=== PATIENT | male | born 1985 | race Caucasian/White ===

== ENCOUNTER 2017-02-13 23:11 | Emergency (ER) | payer OTHER ==
[~2017-02-13] VITALS: Ht 170.2 cm; Wt 73.0 kg
[2017-02-13 23:20] VITALS: Ht 170.2 cm; Wt 73.0 kg
[2017-02-14] MEDS ORDERED: LIDOCAINE 2%/EPI MPF (SDV) 20 ML VIAL INJ STA (00:58)
[2017-02-14 02:20] VITALS: BP 120/66; PULSE 60; RESP 22; TEMP 98.6
--- NOTE | 2017-02-15 18:57 | ERD ---
ER Documentation Chief Complaint Date/Time DATE: 02/15/17 TIME: 18:53 Chief Complaint left upper eyebrow laceration sustained while playing soccer HPI This is a 32-year-old male presents to the emergency department with a laceration to his left upper eyebrow from getting hit with a soccer ball a couple hours prior to being seen. Patient states that he has had no loss of consciousness, he denies any vomiting, nausea and dizziness. He states pain is minimal. Patient states that his last tetanus was this year. ROS All systems reviewed and are negative except as per history of present illness. Allergies Allergies: Coded Allergies: No Known Allergy (Unverified , 02/13/17) PMhx/Soc Medical and Surgical Hx: pt denies Medical Hx, pt denies Surgical Hx Hx Alcohol Use: No Hx Substance Use: No Hx Tobacco Use: No Smoking Status: Never smoker Physical Exam Vitals Vital Signs Date Time Temp Pulse Resp B/P Pulse Ox O2 Delivery O2 Flow Rate FiO2 02/14/17 02:20 98.6 60 22 120/66 100 Room Air 02/13/17 23:20 97.8 88 20 127/90 100 Physical Exam General: WD/WN, in no apparent distress, non-toxic appearing HENT: NC/AT Eyes: Conjunctiva normal Neck: Supple Pulm: Normal labored breathing CV: Good capillary refill GI: Non-distended, no guarding Back: No masses Ext: No clubbing, cyanosis, or edema Neuro: Moves on all fours, no neuro deficits, sensation intact Skin: 2cm laceration on the left upper eyebrow Psych: Normal mood Results 24 hrs Current Medications Medications (Trade) Dose Ordered Sig/Mt Route PRN Reason Start Time Stop Time Status Last Admin Dose Admin Lidocaine/ Epinephrine (Xylocaine 2%/ Epi Mpf(Sdv)) 20 ml ONCE STAT INJ 02/14/17 00:58 02/14/17 00:59 DC Procedures/MDM This is a 32-year-old male presenting to the emergency department with a laceration to his left upper eyebrow from getting hit by a soccer ball. Patient did not lose any consciousness, I have low suspicion for any acute intracranial pathology, no extraocular entrapment My clinical suspicion for fracture, nerve/tendon/arterial injury is low due to physical examination. Procedure below. hemodynamically stable and neurovascularly intact pre and post treatment. Discussed to return to this facility or primary care physician in 6 days for suture removal. Discussed to return to the ER for any signs of infection or if condition worsens. Patient expressed agreement and understanding of the plan. PROCEDURE NOTE: Consent was obtained. Patient was positioned appropriately. Copious amount of normal saline was used for irrigation. Wound was cleansed with betaiodine. Approximately []cc of lidocaine with epinephrine was used as a local anesthetic. Patient was sterile draped with wound exposed. Wound was closed with good approximation with 4 x 5-0 Prolene sutures. Procedure tolerated without complications. Wound dressed with bacitracin and sterile gauze. Departure Diagnosis: Primary Impression: Facial laceration Condition: Stable Patient Instructions: Laceration, Face (Suture Or Tape) Additional Instructions: SUTURE REMOVAL:CONSULTE A LITTLE MDICO PARA SACAR LITTLE PUNTOS en 6 staton Regrese a estas instalaciones si no se mejora vandana esperbamos o vandana le dijimos. OCTAVIO RODRIGUEZ PA-C Feb 15, 2017 18:57
== END 2017-02-14 02:21 | disposition home or self-care (01) ==
LOC: FTE 23:11
DX: S01.112A Laceration without foreign body of left eyelid and periocular area, initial encounter (principal); W21.02XA Struck by soccer ball, initial encounter; Y92.322 Soccer field as the place of occurrence of the external cause